=== PATIENT | male | born 2005 | race Caucasian/White ===

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

== ENCOUNTER 2023-01-18 12:23 | Emergency (ER) | payer MEDICAID, OTHER, SELFPAY ==
[~2023-01-18] VITALS: Ht 175.3 cm; Wt 102.3 kg
[2023-01-18] MEDS ORDERED: QUET50TA4 PO (12:49)
[2023-01-18] MEDS ORDERED: PANT40TA29 PO (12:49)
[2023-01-18 14:01] VITALS: BP 136/79
== END 2023-01-18 14:03 | disposition home or self-care (01) ==
LOC: M ED 12:23
DX: Z76.0 Encounter for issue of repeat prescription (principal); F32.A Depression, unspecified; F41.9 Anxiety disorder, unspecified; Z88.5 Allergy status to narcotic agent; Z79.899 Other long term (current) drug therapy

== ENCOUNTER 2023-01-21 19:50 | Emergency (ER) | payer OTHER ==
[~2023-01-21] VITALS: Ht 175.3 cm; Wt 102.3 kg
[~2023-01-21 19:50] MED LIST: PANT40TA29 PO; QUET50TA4 PO
[2023-01-21] MEDS ORDERED: ZOLO100T PO (19:56)
[2023-01-21 21:41] VITALS: BP 123/73
== END 2023-01-21 21:43 | disposition home or self-care (01) ==
LOC: M ED 19:50
DX: S00.83XA Contusion of other part of head, initial encounter (principal); X58.XXXA Exposure to other specified factors, initial encounter; Y92.410 Unspecified street and highway as the place of occurrence of the external cause; K21.9 Gastro-esophageal reflux disease without esophagitis; F17.200 Nicotine dependence, unspecified, uncomplicated; Z79.899 Other long term (current) drug therapy; Z88.5 Allergy status to narcotic agent

== ENCOUNTER 2023-01-23 16:34 | Emergency (ER) | payer MEDICAID, OTHER ==
[~2023-01-23] VITALS: Ht 180.3 cm; Wt 98.1 kg
[~2023-01-23 16:34] MED LIST changes: +ZOLO100T PO
[2023-01-23 18:40] LABS: PHENCYCLIDINE URINE NEGATIVE (NEGATIVE)
[2023-01-23 18:41] LABS: AMPHETAMINES LEVEL URINE NEGATIVE (NEGATIVE); BARBITURATES URINE NEGATIVE (NEGATIVE); BENZODIAZEPINES URINE NEGATIVE (NEGATIVE); CANNABINOIDS URINE NEGATIVE (NEGATIVE); COCAINE METABOLITE URINE NEGATIVE (NEGATIVE); METHADONE URINE NEGATIVE (NEGATIVE); OPIATES URINE NEGATIVE (NEGATIVE)
[2023-01-23 18:42] LABS: HEMATOCRIT 45.6 % (42.0-52.0); HEMOGLOBIN 16.4 g/dl (13.5-17.5); MEAN CORPUSCULAR HEMOGLOBIN 29.8 pg (27.0-33.0); MEAN CORPUSCULAR VOLUME 82.8 fl (80.0-96.0); PLATELET COUNT, AUTOMATED 244 10^3/uL (150-450); RED BLOOD COUNT 5.51 10^6/uL (4.30-6.10); WHITE BLOOD COUNT 8.8 10^3/uL (4.0-10.0)
[2023-01-23 18:43] LABS: ETHYL ALCOHOL (ETHANOL) < 0.003 % (0.000-0.010)
[2023-01-23 18:44] LABS: ACETAMINOPHEN LEVEL < 2.0 UG/ML (10.0-20.0); SALICYLATE LEVEL < 3.0 MG/DL (<30)
[2023-01-23 18:45] LABS: ALBUMIN 4.7 G/DL (3.2-5.2); ALKALINE PHOSPHATASE 177 U/L (46-116); ALT/SGPT 188 U/L (7.0-40); AST/SGOT 68 U/L (<34); BILIRUBIN,DIRECT 0.1 MG/DL (<0.4); BILIRUBIN,TOTAL 0.7 MG/DL (0.3-1.2); BLOOD UREA NITROGEN 14 MG/DL (9-23); CALCIUM LEVEL 10.5 MG/DL (8.5-10.1); CARBON DIOXIDE LEVEL 27 MMOL/L (20-31); CHLORIDE LEVEL 102 MMOL/L (98-107); CREATININE FOR GFR 0.82 MG/DL (0.70-1.30); GLUCOSE, FASTING 332 MG/DL (60-100); POTASSIUM SERUM 4.3 MMOL/L (3.5-5.1); SODIUM LEVEL 137 MMOL/L (136-145); TOTAL PROTEIN 8.3 G/DL (5.7-8.2)
[2023-01-23 18:47] LABS: THYROID STIMULATING HORMONE 0.787 uIU/ML (0.48-4.17)
[2023-01-23 21:13] VITALS: BP 127/80
== END 2023-01-23 21:16 | disposition home or self-care (01) ==
LOC: SMC HOSP 16:34
DX: Z04.6 Encounter for general psychiatric examination, requested by authority (principal); K21.9 Gastro-esophageal reflux disease without esophagitis; F32.A Depression, unspecified; F17.200 Nicotine dependence, unspecified, uncomplicated

== ENCOUNTER 2023-02-05 04:22 | Emergency (ER) | payer OTHER ==
[~2023-02-05] VITALS: Ht 175.3 cm; Wt 108.7 kg
[2023-02-05] MEDS ORDERED: FAMO20TA PO (04:30)
[2023-02-05] MEDS ORDERED: METF10004 PO (04:30)
[2023-02-05] MEDS ORDERED: NS 1,000 ML IV ONE (06:20)
[2023-02-05 06:42] LABS: BASO % 0.5 % (0.0-1.0); EOS # 0.1 10^3/uL (0.0-0.5); EOS % 1.5 % (0.0-3.0); HEMATOCRIT 42.6 % (42.0-52.0); HEMOGLOBIN 15.3 g/dl (13.5-17.5); LYMPH # 2.2 10^3/uL (1.5-5.0); LYMPH % 36.4 % (24.0-44.0); MEAN CORPUSCULAR HEMOGLOBIN 29.8 pg (27.0-33.0); MEAN CORPUSCULAR HGB CONC 35.9 g/dl (32.0-36.5); MEAN CORPUSCULAR VOLUME 82.9 fl (80.0-96.0); MONO # 0.4 10^3/uL (0.0-0.8); MONO % 7.3 % (2.0-8.0); NEUTROPHILS # 3.3 10^3/uL (1.5-8.5); PLATELET COUNT, AUTOMATED 194 10^3/uL (150-450); RED BLOOD COUNT 5.14 10^6/uL (4.30-6.10)
[2023-02-05 06:57] LABS: HEMOGLOBIN A1c 9.6 % (4.0-6.0)
[2023-02-05 07:05] LABS: LIPASE 33 U/L (12-53)
[2023-02-05 07:07] LABS: ALBUMIN 4.4 G/DL (3.2-5.2); ALKALINE PHOSPHATASE 156 U/L (46-116); ALT/SGPT 178 U/L (7.0-40); AST/SGOT 68 U/L (<34); BILIRUBIN,DIRECT 0.2 MG/DL (<0.4); BILIRUBIN,TOTAL 0.5 MG/DL (0.3-1.2); BLOOD UREA NITROGEN 17 MG/DL (9-23); CARBON DIOXIDE LEVEL 27 MMOL/L (20-31); CHLORIDE LEVEL 102 MMOL/L (98-107); CREATININE FOR GFR 0.71 MG/DL (0.70-1.30); GLUCOSE, FASTING 226 MG/DL (60-100); POTASSIUM SERUM 3.9 MMOL/L (3.5-5.1); SODIUM LEVEL 139 MMOL/L (136-145); TOTAL PROTEIN 7.4 G/DL (5.7-8.2)
[2023-02-05 07:08] LABS: OSMOLALITY SERUM 296 MOSM/KG (275-295)
[2023-02-05 07:15] LABS: RSV AMPLIFICATION NEGATIVE (NEGATIVE)
[2023-02-05 09:20] VITALS: BP 120/62
== END 2023-02-05 09:33 | disposition home or self-care (01) ==
LOC: M ED 04:22
DX: E11.65 Type 2 diabetes mellitus with hyperglycemia (principal); Z79.84 Long term (current) use of oral hypoglycemic drugs; K21.9 Gastro-esophageal reflux disease without esophagitis; F32.A Depression, unspecified; F41.9 Anxiety disorder, unspecified; F17.200 Nicotine dependence, unspecified, uncomplicated; Z88.5 Allergy status to narcotic agent; Z79.899 Other long term (current) drug therapy

== ENCOUNTER 2023-02-14 03:01 | Emergency (ER) | payer MEDICARE, MEDICAID ==
[~2023-02-14] VITALS: Ht 182.9 cm; Wt 107.7 kg
[~2023-02-14 03:01] MED LIST changes: +FAMO20TA PO; +METF10004 PO
[2023-02-14] MEDS ORDERED: SERT25TA21 PO (03:07)
[2023-02-14] MEDS ORDERED: NS 1,000 ML IV ONE (04:40)
[2023-02-14 05:04] LABS: VENOUS BASE EXCESS -1.5 (-2.0-2.0); VENOUS HCO3 25.2 MEQ/L (23.0-27.0); VENOUS O2 SATURATION 56.2 % (60.0-80.0); VENOUS PARTIAL PRESSURE CO2 49.3 mmHg (38.0-50.0); VENOUS PH 7.326 UNITS (7.330-7.430); VENOUS STANDARD HCO3 22.2 MEQ/L; VENOUS TOTAL CO2 26.7 MEQ/L (24.0-28.0)
[2023-02-14 05:08] LABS: BASO % 0.6 % (0.0-1.0); EOS # 0.1 10^3/uL (0.0-0.5); EOS % 2.1 % (0.0-3.0); HEMATOCRIT 42.6 % (42.0-52.0); HEMOGLOBIN 15.2 g/dl (13.5-17.5); LYMPH # 1.8 10^3/uL (1.5-5.0); LYMPH % 34.1 % (24.0-44.0); MEAN CORPUSCULAR HEMOGLOBIN 29.8 pg (27.0-33.0); MEAN CORPUSCULAR HGB CONC 35.7 g/dl (32.0-36.5); MEAN CORPUSCULAR VOLUME 83.5 fl (80.0-96.0); MONO # 0.3 10^3/uL (0.0-0.8); MONO % 6.2 % (2.0-8.0); NEUTROPHILS % 56.8 % (36.0-66.0); PLATELET COUNT, AUTOMATED 196 10^3/uL (150-450); WHITE BLOOD COUNT 5.3 10^3/uL (4.0-10.0)
[2023-02-14 05:15] VITALS: BP 117/60
[2023-02-14 05:30] LABS: ALBUMIN 4.4 G/DL (3.2-5.2); BILIRUBIN,DIRECT 0.2 MG/DL (<0.4); BILIRUBIN,TOTAL 0.4 MG/DL (0.3-1.2); TOTAL PROTEIN 7.5 G/DL (5.7-8.2)
[2023-02-14 05:31] LABS: ACETONE/KETONE 0.2 MMOL/L (0.02-0.27)
== END 2023-02-14 06:46 | disposition home or self-care (01) ==
LOC: M ED 03:01
DX: E11.65 Type 2 diabetes mellitus with hyperglycemia (principal); Z88.5 Allergy status to narcotic agent

== ENCOUNTER → 2023-04-19 | Outpatient (CLI) | payer MEDICAID, MEDICARE, OTHER ==
[~2023-04-19] MED LIST changes: +SERT25TA21 PO
[2023-04-19 12:39] LABS: INR 0.98; PROTHROMBIN TIME 13.2 SECONDS (12.5-14.5)
[2023-04-19 12:53] LABS: ALBUMIN 4.4 G/DL (3.2-5.2); ALKALINE PHOSPHATASE 166 U/L (46-116); ALT/SGPT 153 U/L (7.0-40); AST/SGOT 62 U/L (<34); BILIRUBIN,DIRECT 0.2 MG/DL (<0.4); BILIRUBIN,TOTAL 0.5 MG/DL (0.3-1.2); IMMUNOGLOBULIN A 225.2 MG/DL (40-350); IRON (FE) 87 UG/DL (65-175); TOTAL IRON BINDING CAPACITY 335 UG/DL (250-425); TOTAL PROTEIN 7.5 G/DL (5.7-8.2)
[2023-04-19 13:12] LABS: HEPATITIS B SURFACE ANTIGEN NEGATIVE (NEGATIVE)
[2023-04-19 13:33] LABS: HEPATITIS B CORE ANTIBODY IGM NEGATIVE (NEGATIVE); HEPATITIS C VIRUS ABY INDEX 0.1 INDEX (<0.8)
[2023-04-20 16:09] LABS: CERULOPLASMIN 22.7 mg/dL (16.0-31.0)
[2023-04-20 23:07] LABS: ALPHA 1 ANTITRYPSIN 129 mg/dL (95-164); ANTI-MITOCHONDRIAL ANTIBODY <20.0 Units (0.0-20.0); ANTINUCLEAR ANTIBODIES DIRECT Negative (Negative); LIVER-KIDNEY MICROSOMAL ABY <20.1 Units (0.0-20.0); TISSUE TRANSGLUTAMINASE IgA <2 U/mL (0-3)
[2023-04-21 17:09] LABS: ANCA-ATYPICAL <1:20 titer (Neg:<1:20); CYTOPLASMIC NEUTROP AB ANCA-C <1:20 titer (Neg:<1:20); PERINUCLEAR AB ANCA-P <1:20 titer (Neg:<1:20)
== END ==
LOC: M LAB 11:10
PROVIDERS: ATTEND Internal Medicine Gastroenterology
DX: R74.01 Elevation of levels of liver transaminase levels (principal)

== ENCOUNTER → 2023-06-27 | Outpatient (CLI) | payer OTHER ==
[~2023-06-27] MED LIST changes: +MELO15TA28 PO; +METF500T13 PO; +SEMA0.257 SQ; +TOPA100T12 PO
[2023-06-27 09:19] LABS: PLATELET COUNT, AUTOMATED 221 10^3/uL (150-450)
[2023-06-27 09:22] VITALS: BP 126/76; TEMP 97.2; O2SAT 99
[2023-06-27 09:39] LABS: PROTHROMBIN TIME 13.4 SECONDS (12.5-14.5)
== END ==
LOC: M IRPRO 08:55
PROVIDERS: ATTEND Internal Medicine Gastroenterology
DX: R74.01 Elevation of levels of liver transaminase levels (principal)

== ENCOUNTER → 2023-07-13 | Outpatient (CLI) | payer OTHER ==
[~2023-07-13] MED LIST changes: +ACETAMINOPHEN 325 MG TAB As Ordered ONE; +ACETAMINOPHEN TAB 650MG DOSE (2X325MG) PO PRN; +LIDOCAINE 1% MDV 20ML VIAL As Ordered ONE
[2023-07-13 09:23] VITALS: TEMP 97.7
[2023-07-13 10:45] VITALS: BP 105/63; O2SAT 97
== END ==
LOC: M IRPRO 09:11
PROVIDERS: ATTEND Internal Medicine Gastroenterology
DX: R74.01 Elevation of levels of liver transaminase levels (principal); Z53.29 Procedure and treatment not carried out because of patient's decision for other reasons

== ENCOUNTER 2023-09-02 18:41 | Emergency (ER) | payer OTHER ==
[~2023-09-02] VITALS: Ht 185.4 cm; Wt 90.2 kg
[~2023-09-02 18:41] MED LIST changes: -ACETAMINOPHEN 325 MG TAB As Ordered ONE; -ACETAMINOPHEN TAB 650MG DOSE (2X325MG) PO PRN; -LIDOCAINE 1% MDV 20ML VIAL As Ordered ONE
[2023-09-02] MEDS ORDERED: ONDANSETRON 4MG ORAL DISINTEGRATING TAB PO ONE (20:10)
[2023-09-02 20:30] LABS: RSV AMPLIFICATION NEGATIVE (NEGATIVE)
[2023-09-02] MEDS ORDERED: OMEP40CA4 PO (20:43)
[2023-09-02 21:14] VITALS: BP 119/75; TEMP 98.3; O2SAT 98
== END 2023-09-02 21:16 | disposition home or self-care (01) ==
LOC: M ED 18:41
DX: K21.9 Gastro-esophageal reflux disease without esophagitis (principal); E11.9 Type 2 diabetes mellitus without complications; F41.9 Anxiety disorder, unspecified; F32.9 Major depressive disorder, single episode, unspecified; F17.200 Nicotine dependence, unspecified, uncomplicated; Z79.4 Long term (current) use of insulin; Z79.899 Other long term (current) drug therapy; Z88.5 Allergy status to narcotic agent

== ENCOUNTER 2024-01-23 18:56 | Emergency (ER) | payer OTHER ==
[~2024-01-23] VITALS: Ht 167.6 cm; Wt 85.4 kg
[~2024-01-23 18:56] MED LIST changes: +OMEP40CA4 PO
[2024-01-23 19:53] LABS: VENOUS BASE EXCESS -0.7 (-2.0-2.0); VENOUS HCO3 25.5 MMOL/L (23.0-27.0); VENOUS O2 SATURATION 44.6 % (60.0-80.0); VENOUS PARTIAL PRESSURE O2 25.3 mmHg (30.0-50.0); VENOUS PH 7.344 UNITS (7.330-7.430); VENOUS STANDARD HCO3 22.5 MMOL/L
[2024-01-23 20:07] LABS: HEMOGLOBIN A1c 10.8 % (4.0-6.0)
[2024-01-23 20:09] LABS: BASO % 0.6 % (0.0-1.0); EOS % 0.5 % (0.0-3.0); HEMATOCRIT 40.3 % (42.0-52.0); HEMOGLOBIN 14.3 g/dl (13.5-17.5); LYMPH # 2.2 10^3/uL (1.5-5.0); LYMPH % 33.8 % (24.0-44.0); MEAN CORPUSCULAR HEMOGLOBIN 29.7 pg (27.0-33.0); MEAN CORPUSCULAR HGB CONC 35.5 g/dl (32.0-36.5); MEAN CORPUSCULAR VOLUME 83.6 fl (80.0-96.0); MONO # 0.4 10^3/uL (0.0-0.8); MONO % 5.8 % (2.0-8.0); NEUTROPHILS # 3.8 10^3/uL (1.5-8.5); NEUTROPHILS % 59.1 % (36.0-66.0); PLATELET COUNT, AUTOMATED 198 10^3/uL (150-450); RED BLOOD COUNT 4.82 10^6/uL (4.30-6.10); WHITE BLOOD COUNT 6.4 10^3/uL (4.0-10.0)
[2024-01-23] MEDS: NS 1,000 ML IV ONE (20:14)
[2024-01-23] MEDS: HumuLIN R (REGULAR) INSULIN (NovoLIN R) **100U/ML** PER UNIT IV ONE (20:14)
[2024-01-23 20:17] LABS: LIPASE 64 U/L (12-53)
[2024-01-23 20:19] LABS: ALBUMIN 4.2 G/DL (3.2-5.2); ALKALINE PHOSPHATASE 178 U/L (46-116); ALT/SGPT 42 U/L (7.0-40); AST/SGOT 21 U/L (<34); BILIRUBIN,DIRECT 0.1 MG/DL (<0.4); BILIRUBIN,TOTAL 0.5 MG/DL (0.3-1.2)
[2024-01-23 21:15] VITALS: TEMP 99
[2024-01-23 21:45] LABS: ACETONE/KETONE 0.16 MMOL/L (0.02-0.27)
[2024-01-23 21:48] LABS: BLOOD UREA NITROGEN 13 MG/DL (9-23); CALCIUM LEVEL 9.2 MG/DL (8.5-10.1); CARBON DIOXIDE LEVEL 24 MMOL/L (20-31); CHLORIDE LEVEL 96 MMOL/L (98-107); CREATININE FOR GFR 0.69 MG/DL (0.70-1.30); GLUCOSE, FASTING 701 MG/DL (60-100); POTASSIUM SERUM 4.4 MMOL/L (3.5-5.1); SODIUM LEVEL 129 MMOL/L (136-145)
[2024-01-23 22:45] VITALS: BP 123/68; O2SAT 98
[2024-01-23] MEDS: metFORMIN (GLUCOPHAGE) 500MG TAB PO ONE (22:46)
[2024-01-23] MEDS ORDERED: METF-839 PO (22:54)
== END 2024-01-23 23:03 | disposition home or self-care (01) ==
LOC: M ED 18:56
DX: E11.65 Type 2 diabetes mellitus with hyperglycemia (principal); Z88.5 Allergy status to narcotic agent; Z79.84 Long term (current) use of oral hypoglycemic drugs; Z79.899 Other long term (current) drug therapy
CPT/HCPCS: 80048; 80076; 81001; 82010; 82803; 83036; 83690; 83930; 85025; 93005; 96374; 99284; J1815

== ENCOUNTER 2024-05-11 13:12 | Emergency (ER) | payer OTHER ==
[~2024-05-11] VITALS: Ht 182.9 cm; Wt 79.2 kg
[~2024-05-11 13:12] MED LIST changes: +METF-839 PO
[2024-05-11 15:27] VITALS: BP 103/76; TEMP 97.5; O2SAT 97
== END 2024-05-11 15:29 | disposition home or self-care (01) ==
LOC: M ED 13:12
DX: S62.306A Unspecified fracture of fifth metacarpal bone, right hand, initial encounter for closed fracture (principal); Y92.9 Unspecified place or not applicable; Y93.9 Activity, unspecified; Y99.9 Unspecified external cause status; E11.9 Type 2 diabetes mellitus without complications; G43.909 Migraine, unspecified, not intractable, without status migrainosus; Z88.5 Allergy status to narcotic agent; Z79.4 Long term (current) use of insulin; Z79.84 Long term (current) use of oral hypoglycemic drugs; Z79.899 Other long term (current) drug therapy

== ENCOUNTER 2024-05-13 18:32 | Emergency (ER) | payer OTHER ==
[~2024-05-13] VITALS: Ht 185.4 cm; Wt 78.0 kg
[2024-05-14] MEDS: ACETAMINOPHEN TAB 650MG DOSE (2X325MG) PO ONE (06:20)
[2024-05-14] MEDS: traMADol 50 MG TAB PO ONE (06:21)
[2024-05-14] MEDS ORDERED: TRAM50TA2 PO (06:58)
[2024-05-14 07:07] VITALS: BP 106/51; TEMP 97; O2SAT 96
== END 2024-05-14 07:23 | disposition home or self-care (01) ==
LOC: M ED 18:32
DX: S62.306A Unspecified fracture of fifth metacarpal bone, right hand, initial encounter for closed fracture (principal); Y92.9 Unspecified place or not applicable; Y93.9 Activity, unspecified; Y99.9 Unspecified external cause status; Z46.89 Encounter for fitting and adjustment of other specified devices; Z88.5 Allergy status to narcotic agent; Z79.84 Long term (current) use of oral hypoglycemic drugs; Z79.4 Long term (current) use of insulin; Z79.899 Other long term (current) drug therapy

== ENCOUNTER → 2024-05-30 | Outpatient (CLI) | payer OTHER ==
[~2024-05-30] MED LIST changes: +TRAM50TA2 PO
== END ==
LOC: M SOG 08:06
PROVIDERS: ATTEND Physician Assistant
DX: S62.306A Unspecified fracture of fifth metacarpal bone, right hand, initial encounter for closed fracture (principal)

== ENCOUNTER → 2024-06-07 | Outpatient (CLI) | payer OTHER | LOC: M SOG 13:01 | PROVIDERS: ATTEND Physician Assistant | DX: S62.306A Unspecified fracture of fifth metacarpal bone, right hand, initial encounter for closed fracture (principal); Y93.9 Activity, unspecified; Y92.9 Unspecified place or not applicable ==

== ENCOUNTER → 2024-07-25 | Outpatient (CLI) | payer MEDICAID, OTHER | LOC: M SOG 08:00 | PROVIDERS: ATTEND Physician Assistant | DX: S62.306D Unspecified fracture of fifth metacarpal bone, right hand, subsequent encounter for fracture with routine healing (principal) ==

== ENCOUNTER 2024-09-29 21:01 | Emergency (ER) | payer MEDICAID, SELFPAY ==
[~2024-09-29] VITALS: Ht 182.9 cm; Wt 83.0 kg
[2024-09-29 22:22] LABS: HEMATOCRIT 40.5 % (42.0-52.0); HEMOGLOBIN 14.6 g/dl (13.5-17.5); MEAN CORPUSCULAR VOLUME 83.2 fl (80.0-96.0); PLATELET COUNT, AUTOMATED 210 10^3/uL (150-450); RED BLOOD COUNT 4.87 10^6/uL (4.30-6.10); WHITE BLOOD COUNT 9.9 10^3/uL (4.0-10.0)
[2024-09-29 22:37] LABS: ETHYL ALCOHOL (ETHANOL) < 0.003 % (0.000-0.010)
[2024-09-29 22:39] LABS: SALICYLATE LEVEL < 3.0 MG/DL (<30)
[2024-09-29 22:47] LABS: ALKALINE PHOSPHATASE 171 U/L (40-129); ALT/SGPT 52 U/L (7.0-40); AST/SGOT 27 U/L (<34); BILIRUBIN,DIRECT 0.1 MG/DL (<0.4); BILIRUBIN,TOTAL 0.4 MG/DL (0.3-1.2); BLOOD UREA NITROGEN 18 MG/DL (9-23); CALCIUM LEVEL 10.2 MG/DL (8.5-10.1); CARBON DIOXIDE LEVEL 27 MMOL/L (20-31); CHLORIDE LEVEL 103 MMOL/L (98-107); CREATININE FOR GFR 0.54 MG/DL (0.70-1.30); GLOMERULAR FILTRATION RATE > 60.0 (>60); GLUCOSE, FASTING 462 MG/DL (60-100); POTASSIUM SERUM 4.1 MMOL/L (3.5-5.1); SODIUM LEVEL 137 MMOL/L (136-145); THYROID STIMULATING HORMONE 0.913 uIU/ML (0.55-4.78); TOTAL PROTEIN 7.4 G/DL (5.7-8.2)
[2024-09-29 22:48] LABS: AMPHETAMINES LEVEL URINE NEGATIVE (NEGATIVE); BARBITURATES URINE NEGATIVE (NEGATIVE); BENZODIAZEPINES URINE NEGATIVE (NEGATIVE); COCAINE METABOLITE URINE NEGATIVE (NEGATIVE); METHADONE URINE NEGATIVE (NEGATIVE); OPIATES URINE NEGATIVE (NEGATIVE)
[2024-09-29 22:49] LABS: CANNABINOIDS URINE NEGATIVE (NEGATIVE); PHENCYCLIDINE URINE NEGATIVE (NEGATIVE)
[2024-09-29] MEDS: HumuLIN R (REGULAR) INSULIN (NovoLIN R) **100U/ML** PER UNIT IV ONE (23:23)
[2024-09-30] MEDS ORDERED: VENL75CA47 PO (00:04)
[2024-09-30] MEDS ORDERED: INSU100I60 INJ (00:04)
[2024-09-30] MEDS ORDERED: INSU100I59 INJ (00:04)
[2024-09-30] MEDS ORDERED: INSU100I24 INJ (00:04)
[2024-09-30] MEDS ORDERED: ATOR1TAB21 PO (00:04)
[2024-09-30] MEDS ORDERED: OMEP40CA5 PO (00:04)
[2024-09-30] MEDS ORDERED: HOME MED LIST COMPLETE! XX SCH (00:05)
[2024-09-30 00:29] VITALS: BP 111/66; O2SAT 96
[2024-09-30 00:51] VITALS: TEMP 97.6
== END 2024-09-30 00:53 | disposition home or self-care (01) ==
LOC: M ED 21:01
DX: Z04.6 Encounter for general psychiatric examination, requested by authority (principal); E11.65 Type 2 diabetes mellitus with hyperglycemia; Z88.5 Allergy status to narcotic agent; F41.9 Anxiety disorder, unspecified; F32.A Depression, unspecified; Z79.4 Long term (current) use of insulin; Z79.899 Other long term (current) drug therapy
CPT/HCPCS: 80048; 80076; 80143; 80307; 82077; 84443; 85027; 96374; 99284; J1815

== ENCOUNTER 2025-07-18 19:24 | Emergency (ER) | payer MEDICAID ==
[~2025-07-18] VITALS: Ht 182.9 cm; Wt 72.2 kg
[~2025-07-18 19:24] MED LIST changes: +ATOR1TAB21 PO; +INSU100I24 INJ; +INSU100I59 INJ; +INSU100I60 INJ; +OMEP40CA5 PO; +VENL75CA47 PO
[2025-07-18 19:31] VITALS: TEMP 98
[2025-07-18 20:32] LABS: BASO # 0.0 10^3/uL (0.0-0.2); BASO % 0.5 % (0.0-1.0); EOS # 0.1 10^3/uL (0.0-0.5); EOS % 1.2 % (0.0-3.0); LYMPH # 2.5 10^3/uL (1.5-5.0); LYMPH % 38.3 % (24.0-44.0); MONO # 0.4 10^3/uL (0.0-0.8); MONO % 6.6 % (2.0-8.0); NEUTROPHILS # 3.5 10^3/uL (1.5-8.5); NEUTROPHILS % 53.2 % (36.0-66.0); PLATELET COUNT, AUTOMATED 235 10^3/uL (150-450)
[2025-07-18 21:06] LABS: ALT/SGPT 27 U/L (7.0-40); AST/SGOT 20 U/L (<34); CALCIUM LEVEL 10.0 MG/DL (8.5-10.1); CARBON DIOXIDE LEVEL 24 MMOL/L (20-31); CHLORIDE LEVEL 99 MMOL/L (98-107); CREATININE FOR GFR 0.62 MG/DL (0.70-1.30); GLOMERULAR FILTRATION RATE > 90.0 (>60); POTASSIUM SERUM 5.0 MMOL/L (3.5-5.1); SODIUM LEVEL 136 MMOL/L (136-145)
[2025-07-18 21:30] LABS: OSMOLALITY SERUM 321 MOSM/KG (275-295)
[2025-07-18 21:43] VITALS: BP 134/55
[2025-07-18 21:48] LABS: VENOUS BASE EXCESS -1.4 (-2.0-2.0); VENOUS HCO3 25.3 MMOL/L (23.0-27.0); VENOUS O2 SATURATION 62.9 % (60.0-80.0); VENOUS PARTIAL PRESSURE CO2 49.7 mmHg (38.0-50.0); VENOUS PARTIAL PRESSURE O2 34.3 mmHg (30.0-50.0); VENOUS PH 7.325 UNITS (7.330-7.430); VENOUS STANDARD HCO3 22.4 MMOL/L; VENOUS TOTAL CO2 26.8 MMOL/L (24.0-28.0)
[2025-07-18 22:19] LABS: ACETONE/KETONE 2.56 MMOL/L (0.02-0.27)
[2025-07-18] MEDS: NS (Normal Saline) 0.9% 1,000 ML IV ONE (22:20)
[2025-07-18 22:58] LABS: KETONE, URINE AUTO RFX 1+ mg/dL (NEGATIVE); LEUKOCYTE ESTERASE UR AUTO RFX NEGATIVE (NEGATIVE); NITRITE, URINE AUTO RFX NEGATIVE (NEGATIVE); RBC, URINE AUTO RFX 0 /HPF (0-3); SQUAM EPITHELIAL CELL UR AURFX 0 /HPF (0-6); WBC, URINE AUTO RFX 0 /HPF (0-3)
[2025-07-18 23:09] VITALS: O2SAT 95
== END 2025-07-18 23:20 | disposition left against medical advice (07) ==
LOC: M ED 19:24
DX: E11.65 Type 2 diabetes mellitus with hyperglycemia (principal); R94.31 Abnormal electrocardiogram [ECG] [EKG]; K21.9 Gastro-esophageal reflux disease without esophagitis; F41.9 Anxiety disorder, unspecified; F32.A Depression, unspecified; Z88.5 Allergy status to narcotic agent; Z79.4 Long term (current) use of insulin; Z79.899 Other long term (current) drug therapy; Z53.9 Procedure and treatment not carried out, unspecified reason
CPT/HCPCS: 74018; 80048; 80076; 81001; 82010; 82803; 83036; 83690; 83930; 85025; 93005; 93041; 94760; 96374; 99284; J2765

== ENCOUNTER 2025-08-22 22:03 | Emergency (ER) | payer OTHER, MEDICAID ==
[2025-08-22] MEDS: NS (Normal Saline) 0.9% 1,000 ML IV ONE (22:30)
[2025-08-22 22:47] LABS: VENOUS BASE EXCESS -4.0 (-2.0-2.0); VENOUS HCO3 21.5 MMOL/L (23.0-27.0); VENOUS O2 SATURATION 86.8 % (60.0-80.0); VENOUS PARTIAL PRESSURE CO2 41.0 mmHg (38.0-50.0); VENOUS PARTIAL PRESSURE O2 54.2 mmHg (30.0-50.0); VENOUS PH 7.338 UNITS (7.330-7.430); VENOUS STANDARD HCO3 20.9 MMOL/L; VENOUS TOTAL CO2 22.8 MMOL/L (24.0-28.0)
[2025-08-22 22:50] LABS: KETONE, URINE AUTO RFX NEGATIVE (NEGATIVE); LEUKOCYTE ESTERASE UR AUTO RFX NEGATIVE (NEGATIVE); NITRITE, URINE AUTO RFX NEGATIVE (NEGATIVE); RBC, URINE AUTO RFX 0 /HPF (0-3); SQUAM EPITHELIAL CELL UR AURFX 0 /HPF (0-6); WBC, URINE AUTO RFX 0 /HPF (0-3)
[2025-08-22 23:01] LABS: BASO # 0.0 10^3/uL (0.0-0.2); BASO % 0.5 % (0.0-1.0); EOS # 0.1 10^3/uL (0.0-0.5); EOS % 1.7 % (0.0-3.0); LYMPH # 2.9 10^3/uL (1.5-5.0); LYMPH % 49.9 % (24.0-44.0); MONO # 0.4 10^3/uL (0.0-0.8); MONO % 6.1 % (2.0-8.0); NEUTROPHILS # 2.4 10^3/uL (1.5-8.5); NEUTROPHILS % 41.6 % (36.0-66.0); PLATELET COUNT, AUTOMATED 249 10^3/uL (150-450)
[2025-08-22 23:13] LABS: INR 0.98
[2025-08-22 23:19] LABS: ACETONE/KETONE 0.17 MMOL/L (0.02-0.27); CPK CREATINE PHOSPHOKINASE 51 U/L (46-171)
[2025-08-22 23:31] LABS: OSMOLALITY SERUM 340 MOSM/KG (275-295)
[2025-08-22 23:53] LABS: ALT/SGPT 37 U/L (7.0-40); AST/SGOT 24 U/L (<34); CALCIUM LEVEL 9.1 MG/DL (8.5-10.1); CARBON DIOXIDE LEVEL 23 MMOL/L (20-31); CHLORIDE LEVEL 93 MMOL/L (98-107); CK-MB VALUE MASS 1.1 NG/ML (<3.6); CREATININE FOR GFR 0.50 MG/DL (0.70-1.30); GLOMERULAR FILTRATION RATE > 90.0 (>60); MAGNESIUM LEVEL 1.8 MG/DL (1.8-2.4); MB/CK RELATIVE INDEX 2.15 (< OR =4); POTASSIUM SERUM 4.1 MMOL/L (3.5-5.1); SODIUM LEVEL 130 MMOL/L (136-145)
[2025-08-22] MEDS ORDERED: FAMO40TA3 PO (23:57)
[2025-08-22] MEDS ORDERED: FREEMIS42 TOP (23:57)
[2025-08-22] MEDS ORDERED: VENL150C43 PO (23:57)
[2025-08-22] MEDS ORDERED: PROP60CA PO (23:57)
[2025-08-22] MEDS ORDERED: TIRZ2.5P SQ (23:57)
[2025-08-22] MEDS ORDERED: BUSP15TA47 PO (23:57)
[2025-08-22] MEDS ORDERED: [UNRECOGNIZED DRUG - CODE] XX (23:57)
[2025-08-23] MEDS: HumuLIN R (REGULAR) INSULIN (NovoLIN R) **100 U/ML** PER UNIT IV ONE (00:11)
[2025-08-23 02:03] VITALS: O2SAT 95
[2025-08-23 02:15] VITALS: BP 116/72
== END 2025-08-23 02:32 | disposition home or self-care (01) ==
LOC: M ED 22:03 → EDBD 22:03 → M ED 08-23 02:32
DX: R07.9 Chest pain, unspecified (principal); E11.65 Type 2 diabetes mellitus with hyperglycemia; F41.9 Anxiety disorder, unspecified; F32.A Depression, unspecified; Z88.5 Allergy status to narcotic agent; Z79.4 Long term (current) use of insulin; Z79.899 Other long term (current) drug therapy
CPT/HCPCS: 71045; 80048; 80076; 81001; 82010; 82550; 82553; 82803; 83036; 83690; 83735; 83930; 84484; 85025; 85610; 85730; 93005; 93041; 94760; 96374; 99285; J1815